=== PATIENT | male | born 1965 | race Caucasian/White ===

== ENCOUNTER 2023-07-27 09:46 | Inpatient (IN) ==
--- NOTE | 2023-07-27 10:37 | XRay Report ---
XR chest 1V not portable CLINICAL HISTORY: Chest pain, nonspecific TECHNIQUE: Single frontal radiograph of the chest was obtained. Comparison: None available at the time of this dictation. FINDINGS: No lines and tubes are seen. The cardiomediastinal silhouette is normal. The lungs are clear. No evid ence of pleural effusion or pneumothorax. IMPRESSION: No acute chest disease. ACT 112: Negative or not required by law. Electronically signed by: Man Sage M.D. 07/27/2023 10:36 AM
[2023-07-27 10:45] LABS: Basophils # (auto) 0.02 K/uL (0.00-0.20); Basophils % (auto) 0.3 %; Eosinophils # (auto) 0.33 K/uL (0.00-0.50); Eosinophils % (auto) 4.6 %; Hematocrit (blood only) 45.5 % (42.0-52.0); Hemoglobin 15.1 g/dl (14.0-18.0); Immature Granulocytes # (auto) 0.03 K/uL (0.01-0.20); Immature Granulocytes % (auto) 0.4 %; Lymphocytes # (auto) 1.74 K/uL (1.20-3.40); Lymphocytes % (auto) 24.1 %; Mean Corpuscular Hemoglobin 30.4 pg (25.0-34.0); Mean Corpuscular Hgb Conc 33.2 g/dL (32.0-36.0); Mean Corpuscular Volume 91.5 fL (80.0-100.0); Mean Platelet Volume 10.6 fL (9.4-12.4); Monocytes # (auto) 0.71 K/uL (0.11-0.59); Monocytes % (auto) 9.8 %; Neutrophils # (auto) 4.38 K/uL (1.40-6.50); Neutrophils % (auto) 60.8 %; Platelet Count 232 K/uL (130-400); RDW Coefficient of Variation 12.1 % (11.5-14.5); Red Blood Count 4.97 M/uL (4.70-6.10); White Blood Count 7.21 K/ul (4.8-10.8)
[2023-07-27 10:52] LABS: Albumin Globulin Ratio 1.6 (0.9-2); Albumin Level 4.2 gm/dl (3.4-5.0); BUN Creatinine Ratio 20.4 (10-20); Bilirubin,Total 0.6 mg/dl (0.2-1.0); Calcium 10.7 mg/dl (8.6-10.3); Creatinine Clr Calc Pharmacy 89.4 ml/min; Est GFR (Non-African American) 80.3 ml/min; Globulin 2.7 gm/dl (2.5-4.0); Potassium 4.4 mmol/L (3.5-5.1); Total Protein 6.9 gm/dl (6.0-8.3)
[2023-07-27 11:01] LABS: Troponin I High Sensitivity 24.3 pg/ml (0-20)
[2023-07-27 11:11] LABS: Partial Thromboplastin Ratio 0.9; Partial Thromboplastin Time 25.9 Seconds (21.0-31.0); Prothrombin Time 10.7 Seconds (9.0-12.0)
--- NOTE | 2023-07-27 11:12 | Emergency Department Note ---
Impression & Plan Acute non-ST elevation myocardial infarction (NSTEMI), Atypical chest pain ED Provider Note NAME: MAKENNA GARZA AGE: 58 SEX: M : 1965 ARRIVES VIA: Walk-In INFORMANT: Patient, ED PROVIDER(S): Deandre Hernández MD CHIEF COMPLAINT: Chest tightness MEDICAL DECISION MAKING: Patient presents due to concern for chest tightness. Next IV was established and blood work is obtained. Patient does have a concerning story. No obvious ST elevations on EKG and current pain is around 0-1 per patient. Patient was ordered nitro as well as nitro as needed and heparin drip. Patient's blood work was reviewed prior to these orders as they were done on protocol. Patient has a normal white count H&H and platelet count kidney func tion is unremarkable. Troponin elevated 24.3. I did speak with the on-call corporate trust officer Dr. Soria to make him aware he was in agreement with plan of care. I also did speak with the inpatient medicine service Dr. Bellamy and the patient was admitted Critical Care: I have personally spent 35 minutes of critical care time in direct management of this patient. This includes bedside care, interpretation of diagnostic studies, and testing, discussion with consultants, patient, and family members, and other require inpatient management activities. This 35 minutes is in excess of all separately billable procedures. Discussion w/ other healthcare providers: Dr. Soria with cardiology Dr. Bellamy with inpatient medicine service Prior /Outside records reviewed: I reviewed a wellness visit from May 27, [address] Jewell. Patient was seen due to concern for fatigue and known history of GERD hypertension hyperlipidemia chronic history of lower urinary tract symptoms. Patient was advised to restart MVI work on weight loss and to consider home sleep study Differential diagnosis: Cardiac ischemia, aortic dissection, pulmonary embolism, pneumothorax, pneumonia, pericarditis, myocarditis, GERD, cholecystitis, pancreatitis, musculoskeletal, as well as other pathologies were considered. Diagnostics, as interpreted by me: ECG: Normal sinus rhythm, rate of 64, normal intervals, normal axis T wave version in lead III no ST elevations. Cardiac monitoring: An order was placed for continuous cardiac monitoring. The monitor shows a rate of 67 with sinus rhythm. Patient was placed on pulse oximetry Medical decision rules: Heart score Imaging studies: I informally interpreted the patient's chest x-ray which does not show obvious pneumothorax with formal report to follow. HPI: Patient presents due to concern for chest pains. Patient states that he developed chest pressure after going downstairs to get some eggs for breakfast and upon returning upstairs from the basement he develops chest pressure that was centralized radiating to the bilateral sides of the neck. No nausea or diaphoresis but the patient felt unwell to where he felt he could not go to [facility] and did go to [facility] and took 4 baby aspirin. Patient states that pain is since subsided maybe about a 0 or 1 currently. Patient denies any prior known history of CAD no family history of heart attack or stroke. Symptoms for the to 66. Patient denies fevers or chills and no cough. No lower extremity swelling calf pain history of DVT or PE no recent surgeries procedures or hospitalizations or prolonged car plane travel. PAST MEDICAL HISTORY: See Below PAST SURGICAL HISTORY: See Below SOCIAL HISTORY: See Below HOME MEDICATIONS: See Below ALLERGIES: See Below VITALS: See Below PHYSICAL EXAMINATION: GENERAL: NAD, non-toxic. Wearing glasses. EYE EXAM: Normal conjunctiva. PERRL, no anisocoria and EOM's grossly intact w/o pain. OROPHARYNX: Moist mucus membranes, grossly normal dentition. NECK: Supple, no nuchal rigidity, no adenopathy, non-tender. No signs of meningismus. FROM of the neck with good chin to chest and neck extension. No stridor. LUNGS: Clear to auscultation. Normal chest wall mechanics. HEART: NSR, no MRG. ABDOMEN: Abdomen soft, non-tender, no masses, no rebound or guarding. BACK: No CVA TTP. SKIN: No rashes and no bruising. UPPER EXTREMITIES: Upper extremities are grossly normal. LOWER EXTREMITIES: Grossly normal, no edema. Negative Homans' sign bilaterally NEURO EXAM: A&O x3, cranial nerves II-XII grossly intact, normal speech, moves all 4 extremities. Past Med/Surg History Medical History Allergic rhinitis Benign essential hypertension Dyslipidemia Erectile dysfunction Gastroesophageal reflux disease Surgical History H/O local excision of skin lesion S/P right knee arthroscopy (05/2018) w/ partial lateral meniscectomy [place] teeth removed Family History Grandmother (Maternal) Myocardial infarction Diabetes Mother Anxiety Diverticulitis Depression Arrhythmia Father Hypertension Grandmother (Paternal) Lung cancer Brother Diverticulitis Grandfather (Maternal) Myocardial infarction Heart valve disease Denies family history of Ovarian cancer Prostate cancer Breast cancer Colorectal cancer Social History Smoking Status: Never smoker Hx Alcohol Use: Yes (Rare use) Hx Substance Use: No Preferred Language: Sami Visual Impairment: No Limitations Hearing Ability: Normal Sports Information Director Required: No Beliefs That Will Affect Care: None marital status: Current Living Situation: Spouse and Family current occupational status: employed current occupation: Chiropractor Feels Safe at Home: Yes Diet: regular Diet Comment: regular caffeine: Yes during the past year weight has: remained stable Dental Care, Regularly: Yes Physical Activity Frequency: Daily Seatbelt Use: always Sunscreen Use: Yes Allergies Allergies Allergy/AdvReac Type Severity Reaction Status Date / Time No Known Drug Allergies Allergy Verified 05/27/23 06:58 venom-honey bee Allergy swelling Verified 05/27/23 06:58 Home Meds Home Medications Medication Instructions Recorded Confirmed cetirizine 10 mg tablet 10 mg PO DAILY 09/15/19 05/27/23 Previous Rx's Medication Instructions Recorded sildenafil (pulm.hypertension) 20 See Rx Instructions .Route 05/23/22 mg tablet .COMPLEX #90 tabs losartan 50 mg tablet 50 mg PO DAILY #90 tabs 09/02/22 amlodipine 5 mg tablet 5 mg PO DAILY #90 tabs 01/17/23 Results & Data (ED) Vital Signs Vital Signs - 24 hr 07/27/23 09:55 07/27/23 10:11 07/27/23 12:17 Temperature 36.4 C L Temperature Source Oral Pulse Rate 62 62 Pulse Rate [Apical] 59 L Respiratory Rate 18 17 Respiratory Effort / Characteristics Non-Labored Non-Labored Respiratory Depth Normal Normal Respiratory Pattern Regular Regular Blood Pressure 171/91 H Blood Pressure [Left Arm] 152/91 H Blood Pressure Mean 117 Blood Pressure Mean [Left Arm] 111 Pulse Oximetry 97 96 Oxygen Delivery Method Room Air Room Air Sepsis Recent Fever Within 48 Hours No Sepsis New/Unexplained Change in Mental Status N/A Sepsis Action Taken by Nursing No Action Required Home Medications Current Medication List: was personally reviewed by me Laboratory Data Attestation: I reviewed the patient's lab results. 07/27/23 10:08 07/27/23 10:08 Lab Results 07/27/23 07/27/23 07/27/23 Range/Units 10:08 10:08 10:08 WBC 7.21 (4.8-10.8) K/ul RBC 4.97 (4.70-6.10) M/uL Hgb 15.1 (14.0-18.0) g/dl Hct 45.5 (42.0-52.0) % MCV 91.5 (80.0-100.0) fL MCH 30.4 (25.0-34.0) pg MCHC 33.2 (32.0-36.0) g/dL RDW Std Deviation 41.0 (36.4-46.3) fL RDW Coeff of Loc 12.1 (11.5-14.5) % Plt Count 232 (130-400) K/uL MPV 10.6 (9.4-12.4) fL Immature Gran % (Auto) 0.4 % Neut % (Auto) 60.8 % Lymph % (Auto) 24.1 % [place] % (Auto) 9.8 % Eos % (Auto) 4.6 % Baso % (Auto) 0.3 % Neut # (Auto) 4.38 (1.40-6.50) K/uL Lymph # (Auto) 1.74 (1.20-3.40) K/uL [place] # (Auto) 0.71 H (0.11-0.59) K/uL Eos # (Auto) 0.33 (0.00-0.50) K/uL Baso # (Auto) 0.02 (0.00-0.20) K/uL Immature Gran # (Auto) 0.03 (0.01-0.20) K/uL PT 10.7 (9.0-12.0) Seconds INR 1.0 (0.9-1.1) APTT 25.9 (21.0-31.0) Seconds PTT Ratio 0.9 Sodium 139 (136-145) mmol/L Potassium 4.4 (3.5-5.1) mmol/L Chloride 106 (98-107) mmol/L Carbon Dioxide 30 (21-32) mmol/L Anion Gap 3 (3-11) BUN 21 (6-23) mg/dl Creatinine 1.03 (0.6-1.4) mg/dl Est Cr Clr Drug Dosing 89.4 ml/min Est GFR ( Amer) 93.0 ml/min Est GFR (Non-Af Amer) 80.3 ml/min BUN/Creatinine Ratio 20.4 H (10-20) Glucose 85 (70-99(Fasting)) mg/dl Calcium 10.7 H (8.6-10.3) mg/dl Total Bilirubin 0.6 (0.2-1.0) mg/dl AST 23 (13-39) U/L ALT 24 (7-52) U/L Alkaline Phosphatase 64 (34-104) U/L Troponin I High Sens 24.3 H (0-20) pg/ml Total Protein 6.9 (6.0-8.3) gm/dl Albumin 4.2 (3.4-5.0) gm/dl Globulin 2.7 (2.5-4.0) gm/dl Albumin/Globulin Ratio 1.6 (0.9-2) Administered Medications Heparin Sodium/Dextrose (Heparin Sodium/Dextrose) 25,000 units in 500 mls @ 19 mls/hr IV .Q24H [facility]; Protocol Stop: 08/26/23 11:29 Last Admin: 07/27/23 12:13 Dose: 950 units/hr, 19 mls/hr Documented By: SHRAVANK Co-signed By: OL Discontinued Medications Nitroglycerin (Nitroglycerin Sl 0.4 Mg/Tab Tab) 0.4 mg SL NOW STA Stop: 07/27/23 11:29 Last Admin: 07/27/23 11:52 Dose: Not Given Documented By: NRB Imaging Data Radiologist's Impression: Chest X-Ray 07/27/23 10:22 XR chest 1V not portable CLINICAL HISTORY: Chest pain, nonspecific TECHNIQUE: Single frontal radiograph of the chest was obtained. Comparison: None available at the time of this dictation. FINDINGS: No lines and tubes are seen. The cardiomediastinal silhouette is normal. The lungs are clear. No evidence of pleural effusion or pneumothorax. IMPRESSION: No acute chest disease. ACT 112: Negative or not required by law. Electronically signed by: Man Sage M.D. 07/27/2023 10:36 AM Discharge Plan Visit Data Chief Complaint: Chest Pain Stated Complaint: CHEST PAIN, TIGHTNESS IN CHEST, PAIN IN NECK ED Provider: Deandre Hernández Discharge Problem: Acute non-ST elevation myocardial infarction (NSTEMI), Atypical chest pain Forms Stand Alone Forms: [facility] Apparent Prescriptions Prescriptions: No Action losartan 50 mg tablet 50 mg PO DAILY Qty: 90 3RF amlodipine 5 mg tablet 5 mg PO DAILY Qty: 90 3RF cetirizine 10 mg tablet 10 mg PO DAILY sildenafil (pulm.hypertension) 20 mg tablet See Rx Instructions .ROUTE .COMPLEX Qty: 90 1RF Dose Instruction: TAKE 20MG BY MOUTH PRIOR TO INTERCOURSE. DO NOT EXCEED ONE DOSE PER DAY Rx Instructions: TAKE 20MG BY MOUTH PRIOR TO INTERCOURSE. DO NOT EXCEED ONE DOSE PER DAY Referrals Referrals: Daniella Jewell DO [Primary Care Provider] -
[2023-07-27] MEDS ORDERED: Heparin IV Adult Wt-Based Low-Dose *NO* Bolus Protocol IV ONE (11:28)
[2023-07-27] MEDS ORDERED: NITROGLYCERIN SL 0.4 MG/TAB TAB SL STA (11:28)
[2023-07-27] MEDS ORDERED: NITROGLYCERIN SL 0.4 MG/TAB TAB SL PRN (11:28)
[2023-07-27] MEDS ORDERED: HEPARIN SODIUM/DEXTROSE 25,000 UNITS/500 ML BAG IV SCH (11:30)
--- NOTE | 2023-07-27 11:42 | History & Physical Report ---
Date of Service July 27, 2023 Assessment & Plan (1) Chest pain: Plan: Chest Pain - Acute onset while going up stairs Past history of hypertension. No DM. No hyperlipidemia. No history of early cardiac disease in family members - DDx includes GERD, although has never had neck symkptoms for this and sx were abrubt onset - Sx lasted ~1 hour - trop mildly elevated, trended - Cardiology consulted - ECHO pending - heparin gtt Anticipate stress test tomorrow unless patient has symptoms findings that accelerate catheterization Hemodynamically stable and chest pain-free at time of assessment Aspirin daily, sublingual nitro and Nitropaste every 6 hours quarter inch if pain recurs or patient becomes hypertensive (2) Gastroesophageal reflux disease: Plan: PPI Plan Heparinized Clears PCU Full code History of Present Illness Primary Care Provider: Daniella Jewell DO Magdaleno is a 58-year-old male who presents for evaluation of chest pain. Chest pain began abruptly while walking upstairs following breakfast, centralized chest pressure that extended to the back of the neck and both sides of his neck. No prior history of hyperlipidemia, diabetes, or CAD. Does have a prior history of hypertension managed with amlodipine/losartan. No family history of heart attack/CVA.EKG: Normal sinus rhythm, no territorial ST/T wave changes. Troponin is mildly elevated at 24 on admission, patient pain-free at time of reassessment. Based on new sudden onset exertional angina Case was discussed with cardiology who agrees with heparinization, echo, and trending tropes. Patient is admitted for cardiac observation. Going up stairs after making breakfast, suddenly 7/10 squeezing in his chest. Was coming up basement steps after going to get eggs. Mild shortness of breath with symptoms which resolved after a few minutes. No sweating. Pain lasted approximately [address] hour[address] [place] to [place] but was concerned so came to [facility] instead. Took 4x baby aspirin for a full dose on the way here which resolved his pain. Is not sure resting vs aspriin improved his pain, but it did improve. Does endorse a history of GERD and indigestion. Takes amlodipine and losartan for HTN, took these this AM. Does not take any other medication. No tobacco product use. Rare socail etoh use, 2 beers yesterday. No history of afib/sleep apnea. Does snore per his . Wakes up mostly rested, bt does get up sometimes to pee due to prostate issue. Medical History: Reviewed Medications: Reviewed Surgical History: Reviewed Family history: Reviewed Allergies: Reviewed Social History: No tobacco, rare etoh, Code Status: FUll Code Allergies Allergy/AdvReac Type Severity Reaction Status Date / Time No Known Drug Allergies Allergy Verified 05/27/23 06:58 venom-honey bee Allergy swelling Verified 05/27/23 06:58 Home Medications Medication Instructions Recorded Confirmed Type cetirizine 10 mg tablet 10 mg PO DAILY 09/15/19 05/27/23 History sildenafil (pulm.hypertension) 20 See Rx Instructions .Route 05/23/22 05/27/23 Rx mg tablet .COMPLEX #90 tabs losartan 50 mg tablet 50 mg PO DAILY #90 tabs 09/02/22 05/27/23 Rx amlodipine 5 mg tablet 5 mg PO DAILY #90 tabs 01/17/23 05/27/23 Rx Past Med/Surg History Medical History Allergic rhinitis Benign essential hypertension Dyslipidemia Erectile dysfunction Gastroesophageal reflux disease Surgical History H/O local excision of skin lesion S/P right knee arthroscopy (05/2018) w/ partial lateral meniscectomy [place] teeth removed Family History Grandmother (Maternal) Myocardial infarction Diabetes Mother Anxiety Diverticulitis Depression Arrhythmia Father Hypertension Grandmother (Paternal) Lung cancer Brother Diverticulitis Grandfather (Maternal) Myocardial infarction Heart valve disease Denies family history of Ovarian cancer Prostate cancer Breast cancer Colorectal cancer Social History Smoking Status: Never smoker Hx Alcohol Use: Yes (Rare use) Hx Substance Use: No Preferred Language: Swedish Visual Impairment: No Limitations Hearing Ability: Normal Maintenance Custodian Required: No Beliefs That Will Affect Care: None marital status: Current Living Situation: Spouse and Family current occupational status: employed current occupation: Chiropractor Feels Safe at Home: Yes Diet: regular Diet Comment: regular caffeine: Yes during the past year weight has: remained stable Dental Care, Regularly: Yes Physical Activity Frequency: Daily Seatbelt Use: always Sunscreen Use: Yes Physical Exam Physical Exam: General: A&Ox3. NAD. Cooperative. HEENT: Atraumatic, normocephalic. Pulm: CTAB A&P. -wheezes, -rales, -rhonchi. Symmetrical chest rise. No increased work of breathing. No respiratory distress. Cardiac: RRR, -mrg. Radial pulses intact and symmetrical. Abdominal: Nontender, nondistended, soft. BS present. Results & Data Results & Data Vital Signs (Past 12 Hours) Vital Signs Temp Pulse Resp BP Pulse Ox O2 Del Method 07/27/23 10:11 62 07/27/23 09:55 36.4 C L 62 18 171/91 H 97 Room Air PG Care Time/CCT Total # of Minutes Spent Total Time Spent with Patient: Total time spent is greater than 50% in coordination of care (as documented) at patient's floor/unit and/or counseling patient: Coding Level of Care Code 91993 INT INP/OBS CARE 3/75MIN Diagnoses Chest pain R07.9 Gastroesophageal reflux disease K21.9
[2023-07-27] MEDS ORDERED: NITROGLYCERIN 2% OINTMENT 30GM TUBE EXT ONE (13:23)
[2023-07-27] MEDS ORDERED: ONDANSETRON INJ 2 MG/ML 2 ML VIAL IV PRN (13:23)
[2023-07-27] MEDS ORDERED: MoRPHine SULFATE 2 MG/ML CARP IV PRN (13:23)
[2023-07-27] MEDS ORDERED: ACETAMINOPHEN 325 MG TAB PO PRN (13:23)
[2023-07-27 18:44] LABS: Partial Thromboplastin Ratio 1.2; Partial Thromboplastin Time 32.8 Seconds (21.0-31.0)
[2023-07-27] MEDS ORDERED: HEPARIN SOD (PORCINE) 1000 UNIT/ML IV ONE (19:15)
[2023-07-28 02:31] LABS: Basophils # (auto) 0.02 K/uL (0.00-0.20); Basophils % (auto) 0.2 %; Eosinophils # (auto) 0.36 K/uL (0.00-0.50); Hematocrit (blood only) 44.5 % (42.0-52.0); Hemoglobin 14.6 g/dl (14.0-18.0); Immature Granulocytes # (auto) 0.03 K/uL (0.01-0.20); Immature Granulocytes % (auto) 0.3 %; Lymphocytes # (auto) 1.62 K/uL (1.20-3.40); Lymphocytes % (auto) 17.8 %; Mean Corpuscular Hemoglobin 29.8 pg (25.0-34.0); Mean Corpuscular Hgb Conc 32.8 g/dL (32.0-36.0); Mean Corpuscular Volume 90.8 fL (80.0-100.0); Mean Platelet Volume 10.4 fL (9.4-12.4); Monocytes % (auto) 6.6 %; Neutrophils # (auto) 6.46 K/uL (1.40-6.50); Neutrophils % (auto) 71.1 %; Platelet Count 212 K/uL (130-400); RDW Coefficient of Variation 12.1 % (11.5-14.5); RDW Standard Deviation 40.1 fL (36.4-46.3); White Blood Count 9.09 K/ul (4.8-10.8)
[2023-07-28 02:39] LABS: BUN Creatinine Ratio 24.4 (10-20); Calcium 9.9 mg/dl (8.6-10.3); Creatinine Clr Calc Pharmacy 107.1 ml/min; Est GFR (African American) 111.6 ml/min; Est GFR (Non-African American) 96.3 ml/min; Potassium 4.4 mmol/L (3.5-5.1)
[2023-07-28 03:20] LABS: Partial Thromboplastin Ratio 1.8
[2023-07-28 03:27] LABS: Partial Thromboplastin Time 49.9 Seconds (21.0-31.0)
--- NOTE | 2023-07-28 07:33 | Hospitalist Progress Note ---
Date of Service July 28, 2023 Assessment & Plan (1) Chest pain: Plan: Chest Pain - Acute onset while going up stairs Past history of hypertension. No DM. No hyperlipidemia. No history of early cardiac disease in family members - DDx includes GERD, although has never had neck symkptoms for this and sx were abrubt onset - Sx lasted ~1 hour - trop mildly elevated, trended - Cardiology consulted - ECHO pending - heparin gtt Anticipate stress test tomorrow unless patient has symptoms findings that accelerate catheterization Hemodynamically stable and chest pain-free at time of assessment Aspirin daily, sublingual nitro and Nitropaste every 6 hours quarter inch if pain recurs or patient becomes hypertensive (2) Gastroesophageal reflux disease: Plan: PPI Plan Heparinized Clears PCU Full code Admission and Anticipated Discharge Date Admission Date: July 27, 2023 Results & Data Results & Data Vital Signs (Past 12 Hours) Vital Signs Temp Pulse Pulse Resp BP Pulse Ox O2 Del Method 07/28/23 07:28 97.7 F 77 18 142/77 H 97 Room Air 07/28/23 03:36 97.7 F 62 18 152/85 H 95 Room Air 07/27/23 21:56 65 07/27/23 20:30 Room Air 07/27/23 23:09 97.5 F L 70 140/78 94 Room Air 07/27/23 20:56 98.6 F 73 16 130/90 94 Room Air PG Care Time/CCT Total # of Minutes Spent Total Time Spent with Patient: Total time spent is greater than 50% in coordination of care (as documented) at patient's floor/unit and/or counseling patient: Coding Diagnoses Chest pain R07.9 Gastroesophageal reflux disease K21.9
[2023-07-28] MEDS ORDERED: amLODIPine BESYLATE 5 MG TAB PO SCH (09:00)
[2023-07-28] MEDS ORDERED: LOSARTAN POTASSIUM 50 MG TAB PO SCH (09:00)
[2023-07-28] MEDS ORDERED: PANTOprazole 40 MG in SYRINGE 0 ML IV SCH (11:00)
--- NOTE | 2023-07-28 12:42 | XCELERA ---
[id number]
--- NOTE | 2023-07-28 16:14 | XCELERA ---
[id number] \\[id number]
--- NOTE | 2023-07-28 17:41 | Discharge Summary ---
Date of Service July 28, 2023 Admission HPI Per Admitting Provider Magdaleno is a 58-year-old male who presents for evaluation of chest pain. Chest pain began abruptly while walking upstairs following breakfast, centralized chest pressure that extended to the back of the neck and both sides of his neck. No prior history of hyperlipidemia, diabetes, or CAD. Does have a prior history of hypertension managed with amlodipine/losartan. No family history of heart attack/CVA.EKG: Normal sinus rhythm, no territorial ST/T wave changes. Troponin is mildly elevated at 24 on admission, patient pain-free at time of reassessment. Based on new sudden onset exertional angina Case was discussed with cardiology who agrees with heparinization, echo, and trending tropes. Patient is admitted for cardiac observation. Going up stairs after making breakfast, suddenly 7/10 squeezing in his chest. Was coming up basement steps after going to get eggs. Mild shortness of breath with symptoms which resolved after a few minutes. No sweating. Pain lasted approximately 1 hour. Was on his way to [place] but was concerned so came to [facility] instead. Took 4x baby aspirin for a full dose on the way here which resolved his pain. Is not sure resting vs aspriin improved his pain, but it did improve. Does endorse a history of GERD and indigestion. Takes amlodipine and losartan for HTN, took these this AM. Does not take any other medication. No tobacco product use. Rare socail etoh use, 2 beers yesterday. No history of afib/sleep apnea. Does snore per his . Wakes up mostly rested, bt does get up sometimes to pee due to prostate issue. Medical History: Reviewed Medications: Reviewed Surgical History: Reviewed Family history: Reviewed Allergies: Reviewed Social History: No tobacco, rare etoh, Code Status: FUll Code Principal Diagnosis non cardiac chest pain, negative stress echo Discharge Exam cardiac exam is regular, lungs are clear Discharge Data Allergies Allergy/AdvReac Type Severity Reaction Status Date / Time No Known Drug Allergies Allergy Verified 05/27/23 06:58 venom-honey bee Allergy swelling Verified 05/27/23 06:58 Consultations 07/27/23 11:28 ED Decision to Admit Stat 07/27/23 13:23 Consult Cardiology Routine Procedures Performed stress echo Hospital Course (1) Chest pain: Chest Pain - Acute onset while going up stairs Past history of hypertension. No DM. No hyperlipidemia. No history of early cardiac disease in family members stress echo without suggestion of cardiac ischemia, pt educated and will be discharged, to follow up with primary care and consider pepcid or omeprazole if sx return (2) Gastroesophageal reflux disease: Plan Full code Total Time Total Time Spent Total Time Spent (In Minutes): discharge 30 minutes or greater Discharge Plan Discharge Items Patient Disposition: Home - Self-Care Reason For Visit: CHEST PAIN Discharge Diagnosis: non cardiac chest pain Activity: Resume your previous activity Non-emergency contact: Primary Care Provider Call non-emergency contact if: your symptoms worsen Follow-up/Referrals: Daniella Jewell DO [Primary Care Provider] - Diet: Regular Addtl Attending Provider Instructions: consider having a heart healthy diet and if your symptoms continue discuss an antiacid medicine with your primary care provider Pending Studies at Discharge: No Stand-Alone Forms: [employer], Smoking Cessation Medications and DC Order Prescriptions: Continued losartan 50 mg tablet 50 mg PO DAILY Qty: 90 3RF cetirizine 10 mg tablet 10 mg PO DAILY PRN (Reason: Other) sildenafil (pulm.hypertension) 20 mg tablet See Rx Instructions .ROUTE .COMPLEX Qty: 90 1RF Dose Instruction: TAKE 20MG BY MOUTH PRIOR TO INTERCOURSE. DO NOT EXCEED ONE DOSE PER DAY Rx Instructions: TAKE 20MG BY MOUTH PRIOR TO INTERCOURSE. DO NOT EXCEED ONE DOSE PER DAY amlodipine 5 mg tablet 5 mg PO DAILY Discharge Orders: Discharge Order (Routine); Ordered 07/28/23 Ordered By: Flako Santizo Admission Data Admit Date/Time: 07/27/23 13:17 Attending Provider: Flako Santizo Admit Provider: Dewayne Bellamy Primary Care Provider: Daniella Jewell Other Providers: Dewayne Bellamy ; Mayur Olsen Coding Level of Care Code 55909 INP/OBS DISCH >30 MIN Diagnoses Chest pain R07.9 Gastroesophageal reflux disease K21.9
--- NOTE | 2023-07-28 18:26 | Discharge Summary ---
Date of Service July 28, 2023 Admission HPI Per Admitting Provider Magdaleno is a 58-year-old male who presents for evaluation of chest pain. Chest pain began abruptly while walking upstairs following breakfast, centralized chest pressure that extended to the back of the neck and both sides of his neck. No prior history of hyperlipidemia, diabetes, or CAD. Does have a prior history of hypertension managed with amlodipine/losartan. No family history of heart attack/CVA.EKG: Normal sinus rhythm, no territorial ST/T wave changes. Troponin is mildly elevated at 24 on admission, patient pain-free at time of reassessment. Based on new sudden onset exertional angina Case was discussed with cardiology who agrees with heparinization, echo, and trending tropes. Patient is admitted for cardiac observation. Going up stairs after making breakfast, suddenly 7/10 squeezing in his chest. Was coming up basement steps after going to get eggs. Mild shortness of breath with symptoms which resolved after a few minutes. No sweating. Pain lasted approximately [address] [place] way to [place] but was concerned so came [place] [facility] [place] Took 4x baby aspirin for a full dose on the way here which resolved his pain. Is not sure resting vs aspriin improved his pain, but it did improve. Does endorse a history of GERD and indigestion. Takes amlodipine and losartan for HTN, took these this AM. Does not take any other medication. No tobacco product use. Rare socail etoh use, 2 beers yesterday. No history of afib/sleep apnea. Does snore per his . Wakes up mostly rested, bt does get up sometimes to pee due to prostate issue. Medical History: Reviewed Medications: Reviewed Surgical History: Reviewed Family history: Reviewed Allergies: Reviewed Social History: No tobacco, rare etoh, Code Status: FUll Code Discharge Data Allergies Allergy/AdvReac Type Severity Reaction Status Date / Time No Known Drug Allergies Allergy Verified 05/27/23 06:58 venom-honey bee Allergy swelling Verified 05/27/23 06:58 Consultations 07/27/23 11:28 ED Decision to Admit Stat 07/27/23 13:23 Consult Cardiology Routine Discharge Plan Discharge Items Patient Disposition: Home - Self-Care Reason For Visit: CHEST PAIN Discharge Diagnosis: non cardiac chest pain Activity: Resume your previous activity Non-emergency contact: Primary Care Provider Call non-emergency contact if: your symptoms worsen Follow-up/Referrals: Daniella Jewell, [Primary Care Provider] - Diet: Regular Addtl Attending Provider Instructions: consider having a heart healthy diet and if your symptoms continue discuss an antiacid medicine with your primary care provider Pending Studies at Discharge: No Stand-Alone Forms: My [facility] [employer], Smoking Cessation Medications and DC Order Prescriptions: Continued losartan 50 mg tablet 50 mg PO DAILY Qty: 90 3RF cetirizine 10 mg tablet 10 mg PO DAILY PRN (Reason: Other) sildenafil (pulm.hypertension) 20 mg tablet See Rx Instructions .ROUTE .COMPLEX Qty: 90 1RF Dose Instruction: TAKE 20MG BY MOUTH PRIOR TO INTERCOURSE. DO NOT EXCEED ONE DOSE PER DAY Rx Instructions: TAKE 20MG BY MOUTH PRIOR TO INTERCOURSE. DO NOT EXCEED ONE DOSE PER DAY amlodipine 5 mg tablet 5 mg PO DAILY Discharge Orders: Discharge Order (Routine); Ordered 07/28/23 Ordered By: Flako Santizo Admission Data Admit Date/Time: 07/27/23 13:17 Attending Provider: Flako Santizo Admit Provider: Dewayne Bellamy Primary Care Provider: Daniella Jewell Other Providers: Dewayne Bellamy ; Mayur Olsen Other Interventions: Discharge Summary Assessment (RN) Last Done: 07/28/23 17:38 Coding Diagnoses
--- NOTE | 2023-07-29 06:48 | Electrocardiogram Report ---
Test Reason : Blood Pressure : / mmHG Vent. Rate : 064 BPM Atrial Rate : 064 BPM P-R Int : 136 ms QRS Dur : 086 ms QT Int : 372 ms P-R-T Axes : 040 023 026 degrees QTc Int : 383 ms Normal sinus rhythm Low voltage QRS Borderline ECG No previous ECGs available Confirmed by Mayur Olsen ([id number]) on 07/29/2023 6:48:11 AM Referred By: REFERRED SELF Confirmed By:Mayur Olsen
== END 2023-07-28 17:55 | disposition home or self-care (01) | DRG 313 ==
LOC: 2S 09:46 → ED 09:46 → 2S 12:43 → SUATTDRO 13:17